=== PATIENT | male | born 1965 | race Caucasian/White ===

== ENCOUNTER 2017-06-21 09:28 | Day surgery (SDC) | payer BC ==
[2017-06-21] MEDS: BUPIVACAINE 0.25%/EPI (SDV) 30 ML INJ INJ
[~2017-06-21 09:28] MED LIST: CEFAZOLIN 2 GM/50 ML (PMX) 50 ML IVPB; SOD CHLORIDE 0.9% 1,000 ML IV
[2017-06-21] MEDS ORDERED: DIPHENHYDRAMINE 50 MG INJ IV (12:30)
[2017-06-21] MEDS ORDERED: OXYCODONE/ACETAMINOPHEN (5/325) TAB PO (12:30)
[2017-06-21] MEDS ORDERED: HYDROmorphONE (0.2 MG/ML) 10ML SYG IV ×3 (12:30)
[2017-06-21] MEDS ORDERED: PROCHLORPERAZINE 10 MG INJ IV (12:30)
[2017-06-21] MEDS ORDERED: MEPERIDINE 25 MG INJ IV (12:30)
[2017-06-21] MEDS ORDERED: FENTAnyl 50 MCG/ML VIAL IV ×2 (12:30)
[2017-06-21] MEDS ORDERED: ONDANSETRON 4 MG INJ IV (12:30)
[2017-06-21] MEDS ORDERED: LIDOCAINE 2% (SDV) 5 ML INJ (12:36)
[2017-06-21] MEDS ORDERED: SUCCINYLCHOLINE CHLORIDE 100 MG/5 ML SYG IV (12:36)
[2017-06-21] MEDS ORDERED: FENTAnyl 50 MCG/ML VIAL (12:37)
[2017-06-21] MEDS ORDERED: MIDAZOLAM 1 MG/ML 2 ML INJ (12:37)
[2017-06-21] MEDS ORDERED: PROPOFOL 20 ML ×2 (12:37→13:02)
[2017-06-21] MEDS ORDERED: BUPIVACAINE 0.25% (MPF) 30 ML INJ (12:37)
[2017-06-21] MEDS ORDERED: ROCURONIUM 50 MG INJ ×2 (12:37→13:17)
[2017-06-21] MEDS ORDERED: ROPIVACAINE 0.5 % 30 ML VIAL (12:40)
[2017-06-21] MEDS ORDERED: CEFAZOLIN 1 GM INJ (13:05)
[2017-06-21] MEDS ORDERED: FAMOTIDINE 20 MG INJ (13:17)
[2017-06-21] MEDS ORDERED: DEXAMETHASONE 4 MG/ML 1 ML INJ (13:17)
[2017-06-21] MEDS ORDERED: ONDANSETRON 4 MG INJ (13:17)
[2017-06-21] MEDS ORDERED: SUGAMMADEX SODIUM 200 MG/2 ML VIAL IV (13:32)
[2017-06-21] MEDS ORDERED: KETOROLAC 30 MG INJ (13:33)
[2017-06-21] MEDS ORDERED: LABETALOL HCL 20MG INJ IV (14:00)
[2017-06-21] MEDS ORDERED: hydrALAzine 20 MG INJ IV (14:00)
[2017-06-21] MEDS: FENTAnyl 50 MCG/ML VIAL IV ×2 (14:13→14:18)
[2017-06-21] MEDS: HYDROCODONE/APAP (5/325) TAB PO (15:59)
== END 2017-06-21 16:14 | disposition home or self-care (01) ==
LOC: SDS 09:28
DX: K40.30 Unilateral inguinal hernia, with obstruction, without gangrene, not specified as recurrent (principal); I10 Essential (primary) hypertension; E78.5 Hyperlipidemia, unspecified
CPT/HCPCS: 49507; 71045; 93005